=== PATIENT | female | born 1990 | race Caucasian/White ===

== ENCOUNTER → 2016-10-12 | Emergency (ER) | payer OTHER ==
[~2016-10-12] MED LIST: LORA10CA PO
== END | disposition home or self-care (01) ==
LOC: ER 00:04
DX: Z53.21 Procedure and treatment not carried out due to patient leaving prior to being seen by health care provider (principal)

== ENCOUNTER 2024-07-04 19:27 | Emergency (ER) | payer OTHER ==
[~2024-07-04] VITALS: Ht 165.1 cm; Wt 120.2 kg
[2024-07-04 20:07] VITALS: BP 155/101; TEMP 98; O2SAT 98
[2024-07-04] MEDS ORDERED: TETRAcaine 5 ML BOTTLE ONE (20:19)
[2024-07-04] MEDS ORDERED: FLUORESCEIN SODIUM OPHTH 1 EA STRIP ONE (21:25)
[2024-07-04] MEDS ORDERED: KETO5DRO83 RIGHTEYE (21:32)
== END 2024-07-04 22:08 | disposition home or self-care (01) ==
LOC: ER 19:31
DX: T26.82XA Corrosions of other specified parts of left eye and adnexa, initial encounter (principal); T79.9XXA Unspecified early complication of trauma, initial encounter; H57.12 Ocular pain, left eye; G43.909 Migraine, unspecified, not intractable, without status migrainosus; I10 Essential (primary) hypertension; F17.200 Nicotine dependence, unspecified, uncomplicated; Z88.0 Allergy status to penicillin; Z86.79 Personal history of other diseases of the circulatory system; Y93.89 Activity, other specified; Y92.89 Other specified places as the place of occurrence of the external cause; Y99.8 Other external cause status
CPT/HCPCS: J7030